=== PATIENT | male | born 1995 | race Two or more races ===

== ENCOUNTER 2023-11-23 01:51 | Emergency (ER) | payer OTHER ==
[~2023-11-23] VITALS: Ht 175.3 cm; Wt 106.8 kg
[~2023-11-23 01:51] MED LIST: NOCURR
[2023-11-23 01:56] VITALS: BP 145/81; PULSE 110; RESP 18; TEMP 97.9
[2023-11-23] MEDS ORDERED: PERTUSS(ACELL),DIPH,TET VAC/PF 0.5 ML SYRINGE IM. ONE (02:15)
[2023-11-23] MEDS ORDERED: OxyCODONE HCL/ACETAMINOPHEN 5-325 MG TABLET PO ONE (02:15)
[2023-11-23] MEDS ORDERED: AMOX TR/POT CLAV 875 MG/125 MG TABLET PO ONE (02:15)
[2023-11-23] MEDS ORDERED: LIDOCAINE 1% 10 ML VIAL SQ ONE (02:15)
[2023-11-23] MEDS ORDERED: PERCT PO (04:47)
[2023-11-23] MEDS ORDERED: AMOX1TAB16 PO (04:47)
== END 2023-11-23 05:08 | disposition home or self-care (01) ==
LOC: EMS 01:52
DX: S51.852A Open bite of left forearm, initial encounter (principal); W54.0XXA Bitten by dog, initial encounter; Y93.89 Activity, other specified; Y92.89 Other specified places as the place of occurrence of the external cause; Y99.8 Other external cause status
CPT/HCPCS: 99283; 90715; 90471; 12001; J3490